=== PATIENT | female | born 1965 | race African-American/Black ===

== ENCOUNTER 2016-04-16 16:38 | Emergency (ER) | payer MEDICAID | END 2016-04-16 20:08 | disposition home or self-care (01) | LOC: ER 16:38 | DX: S01.551A Open bite of lip, initial encounter (principal); S01.511A Laceration without foreign body of lip, initial encounter; W54.0XXA Bitten by dog, initial encounter; Y92.009 Unspecified place in unspecified non-institutional (private) residence as the place of occurrence of the external cause | CPT/HCPCS: 90471 ==